=== PATIENT | male | born 1945 | race Caucasian/White ===

== ENCOUNTER 2020-01-30 13:59 | Outpatient (REF) | payer MEDICARE, BC, OTHER, SELFPAY ==
[2020-01-30 15:06] LABS: Anion Gap 13 (12-20); Blood Urea Nitrogen 21 mg/dL (9-16); Calcium 8.5 mg/dL (8.4-10.2); Carbon Dioxide 26 mmol/L (22-29); Chloride 106 mmol/L (96-108); Estimated Glomerular Filt Rate > 60; Glucose Random 106 mg/dL (60-115); Potassium 4.8 mmol/l (3.3-5.1); Sodium 140 mmol/L (135-145)
[2020-01-30 15:30] LABS: T4 Thyroxine 7.6 ug/dL (4.5-12.0); Thyroid Stimulating Hormone 1.57 uIU/mL (0.32-4.0)
[2020-01-30 16:13] LABS: Folate 18.4 ng/mL (> or = 4.0); Vitamin B12 220 pg/mL (200-900)
== END 2020-01-30 14:00 | disposition home or self-care (01) ==
LOC: HO.LAB 13:59
PROVIDERS: Visit Provider Psychiatry & Neurology Neurology
DX: G31.84 Mild cognitive impairment of uncertain or unknown etiology (principal)
CPT/HCPCS: 80048; 82607; 82746; 84436; 84443

== ENCOUNTER 2020-02-22 11:23 | Outpatient (REF) | payer MEDICARE, BC, OTHER, SELFPAY ==
--- NOTE | 2020-02-22 11:26 | CT_ITS ---
EXAMINATION: CT HEAD WITHOUT CONTRAST CLINICAL INFORMATION: Cognitive impairment with memory loss and dysphasia. COMPARISON: None. TECHNIQUE: Contiguous axial imaging was performed from the skull base to vertex without intravenous administration of contrast. This CT examination was performed using dose optimization techniques as appropriate, variously including the following: *Automated exposure control *Adjustment of mA and/or kV according to patient size (this includes techniques or standardized protocols for targeted exams where dose is matched to indication/reason for exam; i.e. extremities or head) *Use of iterative reconstruction technique DLP: 943 mGy-cm. FINDINGS: There is no evidence of acute intracranial hemorrhage or territorial infarction. No abnormal mass effect or midline shift is seen. Long to white matter differentiation is well preserved. No extra-axial fluid collections are identified. The lateral ventricles are symmetrical but enlarged. Mild prominence of cortical sulci noted. The osseous structures and soft tissues are normal. The mastoid air cells and visualized portions of the paranasal sinuses are well aerated. CT/CT head/brain wo con IMPRESSION: No acute intracranial process seen. Age-related cerebral volume loss.
== END 2020-02-22 11:24 | disposition home or self-care (01) ==
LOC: HO.CT 11:23
PROVIDERS: Visit Provider Psychiatry & Neurology Neurology
DX: G31.84 Mild cognitive impairment of uncertain or unknown etiology (principal); R47.02 Dysphasia
CPT/HCPCS: 70450

== ENCOUNTER 2023-12-08 10:44 | Outpatient (AMB) | payer OTHER, MEDICARE, BC, SELFPAY ==
--- NOTE | 2023-12-08 10:45 | MHC.OFFVIS ---
Vital Signs 12/08/23 10:49 Height 5 ft 7 in Weight 194 lb BMI 30.4 Intake Visit Reasons: Left knee pain, Low back pain Intake Note: Ralph is a 77 year old male who presents with complaints of low back pain which radiates down his left leg as well as intermittent left knee pain. The patient did undergo 3 low back surgeries by Dr. Hussain Whitten several years ago. He also underwent left total knee replacement surgery approximately 15 years ago. He denies any fevers or chills. He does report intermittent weakness in his left leg. The patient states that he does have a ?nerve stimulator in his low back so he is not able to get an MRI. He has done physical therapy which aggravated his pain. He has failed the last 6 weeks of conservative treatment. He has tried Tylenol and anti-inflammatory medicines which gave him minimal Allergies No Known Allergies Allergy (Verified 12/08/23 10:50) Physical Exam Vital Signs: BMI result Body Mass Index 30.4 Const Other: Well-nourished well-developed very friendly male awake alert and oriented x3 in no acute distress Back/Spine/Pelvis Other: Low back examination shows left-sided paraspinal muscle tenderness, pain with range of motion, positive straight leg raise test on the left at 70 degrees, 4/5 strength with testing of his left hip flexors and knee extensors when compared to 5/5 strength on his right side Extrem Other: Left knee examination shows that the surgical incision is well healed, no erythema, full active extension and flexion to 115 degrees, his patella tracks well Results Reviewed Results Reviewed: X-rays of the patient's left knee taken today show a total knee arthroplasty in good position with no signs of loosening, no acute bony abnormalities Assessment & Plan Assessment & Plan (1) Left knee pain: Code(s): M25.562 - Pain in left knee Category: Medical (2) Low back pain: Code(s): M54.50 - Low back pain, unspecified Category: Medical Plan Mr. Horowitz presents with progressively worsening low back pain which radiates down his left leg possibly due to lumbar stenosis. Thus, I will order a CT scan of his lumbar spine for further evaluation. I will also arrange for the patient to have a follow-up appointment with Dr. Mccormick in our pain management department here at [facility] to see if the patient is a candidate for a left knee nerve block procedure or a lumbar spine cortisone injection. The patient will follow-up as instructed. He will contact me prior to that appointment should his symptoms worsen in any way. I spent 20 minutes in reviewing the patient's records and imaging studies, seeing the patient and documenting in the medical record. Orders: Orders CT lumbar spine wo IV con Today M54.50 - Low back pain, unspecified, M79.605 - Pain in left leg XR knee LT 3V Today M25.562 - Pain in left knee Referrals Pain Management Referral M25.562 - Pain in left knee, M54.50 - Low back pain, unspecified Coding Level of Care Code Est Pt Level 3 (22626) Complex EM visit Add On G2211 Diagnoses Left knee pain M25.562 Low back pain M54.50
[2023-12-08 10:49] VITALS: BMI 30.4
== END 2023-12-08 11:13 | disposition home or self-care (01) ==
PROVIDERS: Visit Provider Orthopaedic Surgery
DX: M25.562 Pain in left knee (principal); M54.50 Low back pain, unspecified
CPT/HCPCS: 99213; G2211

== ENCOUNTER 2023-12-08 10:44 | Outpatient (REF) | payer OTHER, MEDICARE, BC, SELFPAY | END 2023-12-08 10:45 | disposition home or self-care (01) | LOC: HO.HOSX 10:44 | PROVIDERS: Visit Provider Orthopaedic Surgery | DX: M25.562 Pain in left knee (principal); M54.50 Low back pain, unspecified; M79.605 Pain in left leg | CPT/HCPCS: 73562; 99212 ==

== ENCOUNTER 2024-01-25 10:15 | Outpatient (REF) | payer MEDICARE, BC, OTHER, SELFPAY | END 2024-01-25 10:16 | disposition home or self-care (01) | LOC: HO.XRAY 10:15 | PROVIDERS: PCP Physician Assistant; Visit Provider Internal Medicine | DX: M96.1 Postlaminectomy syndrome, not elsewhere classified (principal); M25.562 Pain in left knee; G21.19 Other drug induced secondary parkinsonism; M48.061 Spinal stenosis, lumbar region without neurogenic claudication; F43.10 Post-traumatic stress disorder, unspecified; Z98.1 Arthrodesis status | CPT/HCPCS: 72114; 99202 ==

== ENCOUNTER 2024-01-25 10:15 | Outpatient (AMB) | payer OTHER, MEDICARE, BC, SELFPAY ==
--- NOTE | 2024-01-25 10:22 | A.OFFVIS_ITS ---
Vital Signs 01/25/24 10:23 Height 5 ft 7 in Weight 194 lb BMI 30.4 BP 128/68 Blood Pressure Location Lt brachial Position Sitting Respiration 16 Pulse 68 Pulse Source Pulse Oximeter Pulse Oximetry (%) 96 Oxygen Delivery Method Room Air Intake Visit Reasons: Pain in left knee Allergies No Known Allergies Allergy (Verified 01/25/24 10:24) Medication List - Last Reconciled 01/25/24 by Anastasiia Metz LPN aripiprazole (Abilify) 10 mg PO DAILY aspirin 1 tab PO DAILY cholecalciferol (vitamin D3) 50 mcg PO DAILY cyanocobalamin (vitamin B-12) 500 mcg PO DAILY cyclobenzaprine 10 mg PO BEDTIME hydrocodone-acetaminophen 10-325 mg 1 tab PO DAILY PRN lidocaine 5% 1 patch topical DAILY metoprolol tartrate 25 mg PO BID omeprazole 20 mg PO BID simvastatin 80 mg PO DAILY tamsulosin 0.4 mg PO DAILY tramadol 50 mg PO DAILY trazodone 100 mg PO BEDTIME PRN HPI HPI Pain in left knee: Details: 78-year-old male who presents to the office today for evaluation of left knee pain. The patient did undergo 3 low back surgeries by Dr. Hussain Whitten several years ago. He also underwent left total knee replacement surgery approximately 15 years ago. He cannot get an MRI héctor had nerve stimulator in his low back. He has done physical therapy, which aggravated his pain. He has failed several weeks of conservative treatment. His history is notable for prior lumbar spine surgeries with Dr. Whitten. He is still using [employer] spinal cord stimulation, which has been effective in managing his symptoms roughly 2 years ago. His battery was also replaced around the same time. Symptoms at this time are most bothersome in the left leg and restless legs at night. He endorses the pain is across his lower back and is radiating down his left leg. He rates the pain as 5/10 on the pain scale. He takes hydrocodone as needed. Other than surgery, he has tried different pain medications without benefit. Patient reports he has not had any imaging done on his back yet. He has not seen any neurologist yet. He follows with a psychiatrist. He tried Abilify for PTSD. His medical history includes prediabetes and hypertension. He had heart attack in the past. COUNT INCLUDES THE [facility] Medical History (Updated 02/02/24 @ 09:20 by Zana Mccormick MD) Hyperlipidemia Hypertension Lumbar spinal stenosis Parkinsonism due to drugs Post traumatic stress disorder Review of Systems Const All systems reviewed & are unremarkable except as noted in HPI and below Physical Exam Vital Signs: Last Vital Signs Pulse 68 01/25/24 10:23 Resp 16 01/25/24 10:23 BP 128/68 01/25/24 10:23 Pulse Ox 96 01/25/24 10:23 Oxygen Delivery Method Room Air 01/25/24 10:23 BMI result Body Mass Index 30.4 General: Appears afebrile. Alert and oriented. Mood and affect appropriate. Follows and participates in conversation appropriately. Respiratory effort is unlabored. Able to transition from sit to stand unassisted. Ambulates with bilaterally normal heel strike and toe off. Results Reviewed Results Reviewed: No imaging is available for review. 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 I also recommended follow-up with his psychiatrist to discuss parkinsonism as a potential cause of his restless legs syndrome and to discuss potential dopaminergic therapy to help with these symptoms in context of at a taking Abilify. Follow-up in combination with [employer] customer account representative for device reprogramming. Scribed for Dr. Mccormick by Cali Vizcaino, medical sales specialist, on 01/25/2024. I, Dr. Mccormick, have personally reviewed and agree with the information entered by the scribe Orders: Orders XR lumbar spine 6V w bending 01/25/24 M96.1 - Postlaminectomy syndrome, not elsewhere classified, Z98.1 - Arthrodesis status, F43.10 - Post-traumatic stress disorder, unspecified, G21.19 - Other drug induced secondary parkinsonism, M48.061 - Spinal stenosis, lumbar region without neurogenic claudication Coding Level of Care Code New Pt Level 4 (93591) Diagnoses S/P lumbar fusion Z98.1 Post laminectomy syndrome M96.1 Parkinsonism due to drugs G21.19
[2024-01-25 10:23] VITALS: BP 128/68; PULSE 68; RESP 16; O2SAT 96; BMI 30.4
== END 2024-01-25 11:16 | disposition home or self-care (01) ==
LOC: HO.PMC 10:15
PROVIDERS: Visit Provider Internal Medicine
DX: M96.1 Postlaminectomy syndrome, not elsewhere classified (principal); Z98.1 Arthrodesis status
CPT/HCPCS: 99204